=== PATIENT | female | born 1955 | race Caucasian/White ===

== ENCOUNTER → 2017-08-08 | Outpatient (CLI) | payer MEDICARE, OTHER ==
[~2017-08-08] MED LIST: ACET325 PO; ALBU90OI INH; ASPI81EC PO; ATOR40TA PO; AZIT250 PO; Augmentin 875-1 EACH PO; CEPH500 PO; DULOXETINE HCL40 MG PO; GABA300 PO; GABA800 PO; GLIP5ER PO; HEART BURN MED; HYDCHL25 PO; Hydrochloroth12.5 MG PO; LISI20 PO; LISI5 PO; LOVA40 PO; METF500 PO; METF850 PO; METR500 PO; Metformin HCl1000 MG PO; OMEPRAZOLE MAGN20 MG PO; OXYB5; OXYC15ER PO; PREG100 PO; Prinivil10 MG PO; SACC250C PO; VITAMIN D PO; Ventolin Soln3 ML INH; WARF5 PO
[2017-08-08 15:18] LABS: Bun/Creatinine Ratio 16.9 (12.0-20.0); Calcium, Blood 8.6 mg/dL (8.5-10.1); Creatinine, Blood 1.3 mg/dL (0.40-1.00); Potassium, Blood 4.3 mmol/L (3.5-5.5)
== END | disposition home or self-care (01) ==
LOC: LAB 14:28
PROVIDERS: Internal Medicine Hematology & Oncology
DX: C54.1 Malignant neoplasm of endometrium (principal); C78.01 Secondary malignant neoplasm of right lung; C78.02 Secondary malignant neoplasm of left lung; D64.9 Anemia, unspecified; R51 Headache
CPT/HCPCS: 80048

== ENCOUNTER 2017-09-24 06:41 | Inpatient (IN) | payer MEDICARE ==
[~2017-09-24] VITALS: Ht 167.6 cm; Wt 101.9 kg
[~2017-09-24 06:41] MED LIST changes: -ACET325 PO; -ATOR40TA PO; -Augmentin 875-1 EACH PO; -DULOXETINE HCL40 MG PO; -Metformin HCl1000 MG PO; -PREG100 PO; -Prinivil10 MG PO
[2017-09-24 08:20] LABS: BASOPHILS ABSOLUTE AUTO 0.03 K/mm3 (0.00-0.23); BASOPHILS PERCENT AUTO 0 % (0-2); EOSINOPHILS PERCENT AUTO 1 % (0-6); Hematocrit 28.8 % (33.0-51.0); Hemoglobin 9.1 g/dL (11.5-16.0); IMMATURE GRAN ABSOLUTE AUTO 0.04 K/mm3 (0.00-0.10); IMMATURE GRAN PERCENT AUTO 0 % (0-1); LYMPHOCYTES ABSOLUTE AUTO 0.71 K/mm3 (0.84-5.20); LYMPHOCYTES PERCENT AUTO 8 % (21-46); MONOCYTES ABSOLUTE AUTO 0.96 K/mm3 (0.16-1.47); MONOCYTES PERCENT AUTO 11 % (4-13); Mean Corpuscular HGB 33.8 pg (26.0-34.0); Mean Corpuscular HGB Conc 31.6 g/dL (31.5-36.5); Mean Corpuscular Volume 107 fL (80-100); Mean Platelet Volume 10.1 fL (9.1-12.4); NEUTROPHILS ABSOLUTE AUTO 7.19 K/mm3 (1.96-9.15); NEUTROPHILS PERCENT AUTO 80 % (41-73); Platelet Count 239 K/mm3 (150-400); RDW Coefficient Variation 15.2 % (11.7-14.2); RDW Standard Deviation 59.6 fL (35.1-46.3); Red Blood Cell Count 2.69 M/mm3 (3.80-5.20); White Blood Cell Count 9.03 K/mm3 (4.00-11.30)
[2017-09-24 08:27] LABS: Source, Urine Clean Catch
[2017-09-24] MEDS ORDERED: ATOR40TA PO (08:29)
[2017-09-24] MEDS ORDERED: Metformin HCl1000 MG PO (08:29)
[2017-09-24] MEDS ORDERED: PREG100 PO (08:30)
[2017-09-24] MEDS ORDERED: Prinivil10 MG PO (08:30)
[2017-09-24] MEDS ORDERED: DULOXETINE HCL40 MG PO (08:31)
[2017-09-24 08:33] LABS: Alanine Aminotransfer (ALT/SGP 21 U/L (12-78); Albumin, Blood 2.5 g/dL (3.4-5.0); Albumin/Globulin Ratio 0.6 (0.8-1.8); Alk Phos 78 U/L (50-136); Anion Gap 9 mmol/L (6-16); Aspartate Aminotrans (AST/SGOT 20 U/L (12-37); Bilirubin, Total 0.3 mg/dL (0.1-1.0); Blood Urea Nitrogen 19 mg/dL (8-24); Bun/Creatinine Ratio 21.9 (12.0-20.0); CO2, Blood 24 mmol/L (21-32); Calcium, Blood 8.2 mg/dL (8.5-10.1); Chloride, Blood 103 mmol/L (98-108); Creatinine, Blood 0.87 mg/dL (0.40-1.00); Globulin, Blood 4.2 g/dL (2.2-4.0); Glomerular Filtration Rate >60 (60-); Glucose, Blood 116 mg/dL (70-99); Potassium, Blood 4.2 mmol/L (3.5-5.5); Sodium, Blood 136 mmol/L (136-145); Total Protein, Blood 6.7 g/dL (6.4-8.2)
[2017-09-24 08:34] LABS: Bilirubin, Urine Neg (Neg); Blood, Urine 1+ (Neg); Glucose Qualitative, Urine Neg (Neg); Ketones, Urine Neg (Neg); Leukocyte Esterase, Urine 2+ (Neg); Nitrite, Urine Neg (Neg); Protein, Urine 2+ (Neg); Urobilinogen, Urine 2+ (Normal)
[2017-09-24 08:45] LABS: Appearance, Urine Cloudy (Clear); Color, Urine Yellow (P-Yellow)
[2017-09-24 08:46] LABS: Hyaline Casts 0-2 /lpf (0-2)
[2017-09-24 08:47] LABS: Bacteria Few /hpf; Red Blood Cells, Urine 0-2 /hpf (0-2); Squamous Epithelial Cells Few /hpf (Few)
[2017-09-24 09:53] LABS: International Normalized Ratio 0.99; Prothrombin Time Results 10.3 Sec (9.7-11.5)
[2017-09-25 04:50] LABS: BASOPHILS ABSOLUTE AUTO 0.03 K/mm3 (0.00-0.23); BASOPHILS PERCENT AUTO 1 % (0-2); EOSINOPHILS ABSOLUTE AUTO 0.11 K/mm3 (0.00-0.68); EOSINOPHILS PERCENT AUTO 3 % (0-6); Hematocrit 24.6 % (33.0-51.0); Hemoglobin 7.9 g/dL (11.5-16.0); IMMATURE GRAN ABSOLUTE AUTO 0.01 K/mm3 (0.00-0.10); IMMATURE GRAN PERCENT AUTO 0 % (0-1); LYMPHOCYTES ABSOLUTE AUTO 0.69 K/mm3 (0.84-5.20); LYMPHOCYTES PERCENT AUTO 18 % (21-46); MONOCYTES ABSOLUTE AUTO 0.45 K/mm3 (0.16-1.47); MONOCYTES PERCENT AUTO 12 % (4-13); Mean Corpuscular HGB 33.6 pg (26.0-34.0); Mean Corpuscular HGB Conc 32.1 g/dL (31.5-36.5); Mean Corpuscular Volume 105 fL (80-100); Mean Platelet Volume 9.7 fL (9.1-12.4); NEUTROPHILS ABSOLUTE AUTO 2.62 K/mm3 (1.96-9.15); NEUTROPHILS PERCENT AUTO 67 % (41-73); Platelet Count 189 K/mm3 (150-400); RDW Coefficient Variation 15.2 % (11.7-14.2); RDW Standard Deviation 58.1 fL (35.1-46.3); Red Blood Cell Count 2.35 M/mm3 (3.80-5.20); White Blood Cell Count 3.91 K/mm3 (4.00-11.30)
[2017-09-25 05:11] LABS: Anion Gap 7 mmol/L (6-16); Blood Urea Nitrogen 23 mg/dL (8-24); Bun/Creatinine Ratio 23.5 (12.0-20.0); CO2, Blood 27 mmol/L (21-32); Calcium, Blood 8.4 mg/dL (8.5-10.1); Chloride, Blood 107 mmol/L (98-108); Creatinine, Blood 0.98 mg/dL (0.40-1.00); Glomerular Filtration Rate >60 (60-); Glucose, Blood 98 mg/dL (70-99); Potassium, Blood 4.3 mmol/L (3.5-5.5); Sodium, Blood 141 mmol/L (136-145)
[2017-09-25] MEDS ORDERED: ACET325 PO (12:19)
[2017-09-25] MEDS ORDERED: Augmentin 875-1 EACH PO (12:20)
== END 2017-09-25 13:26 | disposition home or self-care (01) | DRG 193 ==
LOC: ER 06:41 → MEDS 11:04 → ENPENDDIS 09-25 10:51 → MEDS 09-25 13:26
PROVIDERS: Emergency Medicine; Internal Medicine
DX: J15.4 Pneumonia due to other streptococci (principal); J96.01 Acute respiratory failure with hypoxia; J44.0 Chronic obstructive pulmonary disease with (acute) lower respiratory infection; C78.00 Secondary malignant neoplasm of unspecified lung; E11.9 Type 2 diabetes mellitus without complications; Z79.4 Long term (current) use of insulin; I10 Essential (primary) hypertension; E78.5 Hyperlipidemia, unspecified; E66.9 Obesity, unspecified; G47.33 Obstructive sleep apnea (adult) (pediatric); Z86.718 Personal history of other venous thrombosis and embolism; F17.210 Nicotine dependence, cigarettes, uncomplicated; Y95 Nosocomial condition; C54.1 Malignant neoplasm of endometrium
CPT/HCPCS: 36415; 71046; 80048; 80053; 81001; 82947; 83605; 83690; 85025; 85610; 87040; 87070; 87077; 87086; 87186; 87205; 94640; 94760; 96365; 96375; 99285; J0456; J0692; J0696; J1650; J1885; J1956; J3010; J3370; J7030; J7050; J7120

== ENCOUNTER 2017-10-10 15:51 | Day surgery (SDC) | payer MEDICARE, OTHER ==
[~2017-10-10 15:51] MED LIST changes: +ACET325 PO; +ATOR40TA PO; +Augmentin 875-1 EACH PO; +DULOXETINE HCL40 MG PO; +Metformin HCl1000 MG PO; +PREG100 PO; +Prinivil10 MG PO
== END 2017-10-10 22:42 | disposition home or self-care (01) ==
LOC: RAD 15:51
DX: C54.1 Malignant neoplasm of endometrium (principal)
CPT/HCPCS: 36598; Q9967

== ENCOUNTER 2017-10-19 07:20 | Day surgery (SDC) | payer MEDICARE, OTHER ==
[~2017-10-19] VITALS: Ht 167.6 cm; Wt 100.7 kg
== END 2017-10-19 11:40 | disposition home or self-care (01) ==
LOC: ORSCMMR 07:20 → ORD 09:15 → ORSCMMR 09:15
PROVIDERS: Surgery
PROC: 02HV33Z Insertion of Infusion Device into Superior Vena Cava, Percutaneous Approach (ICD-10-PCS; principal; 2017-10-19 09:15)
PROC: B5181ZA Fluoroscopy of Superior Vena Cava using Low Osmolar Contrast, Guidance (ICD-10-PCS; principal; 2017-10-19 09:15)
DX: T82.524A Displacement of infusion catheter, initial encounter (principal); C54.1 Malignant neoplasm of endometrium; C78.02 Secondary malignant neoplasm of left lung; C78.01 Secondary malignant neoplasm of right lung; I10 Essential (primary) hypertension; E11.40 Type 2 diabetes mellitus with diabetic neuropathy, unspecified; E03.9 Hypothyroidism, unspecified; G47.33 Obstructive sleep apnea (adult) (pediatric); K21.9 Gastro-esophageal reflux disease without esophagitis; E66.01 Morbid (severe) obesity due to excess calories; Z68.35 Body mass index [BMI] 35.0-35.9, adult; Z79.899 Other long term (current) drug therapy; F17.210 Nicotine dependence, cigarettes, uncomplicated
CPT/HCPCS: 77001; 82947; C1788; J0690; J1100; J1642; J2250; J2405; J3010; J7120

== ENCOUNTER 2018-05-14 13:46 | Emergency (ER) | payer MEDICARE, OTHER ==
[~2018-05-14] VITALS: Ht 167.6 cm; Wt 104.8 kg
[2018-05-14 14:40] LABS: Alanine Aminotransfer (ALT/SGP 21 U/L (12-78); Albumin, Blood 3.1 g/dL (3.4-5.0); Albumin/Globulin Ratio 0.7 (0.8-1.8); Alk Phos 94 U/L (50-136); Anion Gap 7 mmol/L (6-16); Aspartate Aminotrans (AST/SGOT 12 U/L (12-37); Bilirubin, Total 0.2 mg/dL (0.1-1.0); Blood Urea Nitrogen 18 mg/dL (8-24); Bun/Creatinine Ratio 20.5 (12.0-20.0); CO2, Blood 30 mmol/L (21-32); Calcium, Blood 8.8 mg/dL (8.5-10.1); Chloride, Blood 102 mmol/L (98-108); Creatinine, Blood 0.88 mg/dL (0.40-1.00); Globulin, Blood 4.4 g/dL (2.2-4.0); Glomerular Filtration Rate >60 (60-); Glucose, Blood 108 mg/dL (70-99); Potassium, Blood 4.5 mmol/L (3.5-5.5); Sodium, Blood 139 mmol/L (136-145); Total Protein, Blood 7.5 g/dL (6.4-8.2); Troponin I <0.015 ng/mL (0.000-0.040)
[2018-05-14 14:50] LABS: BASOPHILS ABSOLUTE AUTO 0.03 K/mm3 (0.00-0.23); BASOPHILS PERCENT AUTO 1 % (0-2); EOSINOPHILS ABSOLUTE AUTO 0.07 K/mm3 (0.00-0.68); EOSINOPHILS PERCENT AUTO 1 % (0-6); Hematocrit 31.8 % (33.0-51.0); Hemoglobin 9.9 g/dL (11.5-16.0); IMMATURE GRAN ABSOLUTE AUTO 0.02 K/mm3 (0.00-0.10); IMMATURE GRAN PERCENT AUTO 0 % (0-1); LYMPHOCYTES PERCENT AUTO 15 % (21-46); MONOCYTES ABSOLUTE AUTO 0.29 K/mm3 (0.16-1.47); MONOCYTES PERCENT AUTO 6 % (4-13); Mean Corpuscular HGB 29.7 pg (26.0-34.0); Mean Corpuscular HGB Conc 31.1 g/dL (31.5-36.5); Mean Corpuscular Volume 96 fL (80-100); NEUTROPHILS PERCENT AUTO 77 % (41-73); RDW Coefficient Variation 16.5 % (11.7-14.2); RDW Standard Deviation 56.9 fL (35.1-46.3); Red Blood Cell Count 3.33 M/mm3 (3.80-5.20); White Blood Cell Count 5.21 K/mm3 (4.00-11.30)
[2018-05-14 14:54] LABS: Mean Platelet Volume 11.1 fL (9.1-12.4); Platelet Count 241 K/mm3 (150-400)
[2018-05-14] MEDS ORDERED: Diflucan100 MG PO (15:20)
== END 2018-05-14 15:45 | disposition home or self-care (01) ==
LOC: ER 13:46
PROVIDERS: Physician Assistant
DX: B37.0 Candidal stomatitis (principal); C34.90 Malignant neoplasm of unspecified part of unspecified bronchus or lung; J06.9 Acute upper respiratory infection, unspecified; R07.9 Chest pain, unspecified; Z91.018 Allergy to other foods; Z79.899 Other long term (current) drug therapy; Z79.84 Long term (current) use of oral hypoglycemic drugs; Z79.891 Long term (current) use of opiate analgesic; I10 Essential (primary) hypertension; E78.00 Pure hypercholesterolemia, unspecified; E11.9 Type 2 diabetes mellitus without complications; K21.9 Gastro-esophageal reflux disease without esophagitis; F17.200 Nicotine dependence, unspecified, uncomplicated
CPT/HCPCS: 36415; 71046; 80053; 83880; 84484; 85025; 93005; 93010; 99284-25

== ENCOUNTER 2018-08-15 18:12 | Emergency (ER) | payer MEDICARE, OTHER ==
[~2018-08-15] VITALS: Ht 167.6 cm; Wt 102.1 kg
[~2018-08-15 18:12] MED LIST changes: +Diflucan100 MG PO
[2018-08-15 18:41] LABS: Source, Urine Clean Catch
[2018-08-15 18:51] LABS: Appearance, Urine Bloody (Clear); Bilirubin, Urine Neg (Neg); Blood, Urine 5+ (Neg); Color, Urine Red (P-Yellow); Glucose Qualitative, Urine Neg (Neg); Ketones, Urine Neg (Neg); Leukocyte Esterase, Urine 2+ (Neg); Nitrite, Urine Neg (Neg); Protein, Urine 3+ (Neg); Specific Gravity, Urine 1.025 (1.003-1.022); Urobilinogen, Urine 1+ (Normal)
[2018-08-15 19:16] LABS: Red Blood Cells, Urine TNTC /hpf (0-2)
[2018-08-15 19:17] LABS: Bacteria Not Seen /hpf; Squamous Epithelial Cells Rare /hpf (Few)
[2018-08-15 19:53] LABS: BASOPHILS ABSOLUTE AUTO 0.04 K/mm3 (0.00-0.23); BASOPHILS PERCENT AUTO 1 % (0-2); EOSINOPHILS ABSOLUTE AUTO 0.08 K/mm3 (0.00-0.68); EOSINOPHILS PERCENT AUTO 2 % (0-6); Hematocrit 31.8 % (33.0-51.0); Hemoglobin 9.8 g/dL (11.5-16.0); IMMATURE GRAN ABSOLUTE AUTO 0.04 K/mm3 (0.00-0.10); IMMATURE GRAN PERCENT AUTO 1 % (0-1); LYMPHOCYTES ABSOLUTE AUTO 1.18 K/mm3 (0.84-5.20); LYMPHOCYTES PERCENT AUTO 22 % (21-46); MONOCYTES ABSOLUTE AUTO 0.46 K/mm3 (0.16-1.47); MONOCYTES PERCENT AUTO 9 % (4-13); Mean Corpuscular HGB 30.1 pg (26.0-34.0); Mean Corpuscular HGB Conc 30.8 g/dL (31.5-36.5); Mean Corpuscular Volume 98 fL (80-100); Mean Platelet Volume 10.5 fL (9.1-12.4); NEUTROPHILS ABSOLUTE AUTO 3.62 K/mm3 (1.96-9.15); NEUTROPHILS PERCENT AUTO 67 % (41-73); Platelet Count 294 K/mm3 (150-400); RDW Coefficient Variation 19.3 % (11.7-14.2); Red Blood Cell Count 3.26 M/mm3 (3.80-5.20); White Blood Cell Count 5.42 K/mm3 (4.00-11.30)
[2018-08-15 20:12] LABS: Alanine Aminotransfer (ALT/SGP 19 U/L (12-78); Albumin, Blood 3.1 g/dL (3.4-5.0); Albumin/Globulin Ratio 0.8 (0.8-1.8); Alk Phos 80 U/L (50-136); Anion Gap 4 mmol/L (6-16); Aspartate Aminotrans (AST/SGOT 17 U/L (12-37); Bilirubin, Total 0.2 mg/dL (0.1-1.0); Blood Urea Nitrogen 14 mg/dL (8-24); Bun/Creatinine Ratio 15.4 (12.0-20.0); CO2, Blood 31 mmol/L (21-32); Calcium, Blood 8.4 mg/dL (8.5-10.1); Chloride, Blood 104 mmol/L (98-108); Creatinine, Blood 0.91 mg/dL (0.40-1.00); Globulin, Blood 4.1 g/dL (2.2-4.0); Glomerular Filtration Rate >60 (60-); Glucose, Blood 78 mg/dL (70-99); Potassium, Blood 4.2 mmol/L (3.5-5.5); Sodium, Blood 139 mmol/L (136-145); Total Protein, Blood 7.2 g/dL (6.4-8.2)
== END 2018-08-15 22:45 | disposition home or self-care (01) ==
LOC: ER 18:12
PROVIDERS: Emergency Medicine; Physician Assistant
DX: C55 Malignant neoplasm of uterus, part unspecified (principal); C78.00 Secondary malignant neoplasm of unspecified lung; E11.40 Type 2 diabetes mellitus with diabetic neuropathy, unspecified; E78.00 Pure hypercholesterolemia, unspecified; I10 Essential (primary) hypertension; F17.210 Nicotine dependence, cigarettes, uncomplicated; Z79.84 Long term (current) use of oral hypoglycemic drugs; Z79.899 Other long term (current) drug therapy
CPT/HCPCS: 36415; 80053; 81001; 85025; 86850; 86900; 86901; 87086; 99284

== ENCOUNTER 2018-09-27 07:30 | Day surgery (SDC) | payer MEDICARE, OTHER | END 2018-09-27 22:44 | disposition home or self-care (01) | LOC: WOUND 07:30 | DX: E11.622 Type 2 diabetes mellitus with other skin ulcer (principal); L97.811 Non-pressure chronic ulcer of other part of right lower leg limited to breakdown of skin; E11.51 Type 2 diabetes mellitus with diabetic peripheral angiopathy without gangrene; C54.1 Malignant neoplasm of endometrium; C78.02 Secondary malignant neoplasm of left lung; C78.01 Secondary malignant neoplasm of right lung; I10 Essential (primary) hypertension; I87.2 Venous insufficiency (chronic) (peripheral); G47.33 Obstructive sleep apnea (adult) (pediatric); Z86.718 Personal history of other venous thrombosis and embolism | CPT/HCPCS: G0463 ==

== ENCOUNTER 2018-10-05 00:36 | Day surgery (SDC) | payer MEDICARE, OTHER | END 2018-10-05 22:54 | disposition home or self-care (01) | LOC: WOUND 00:36 | DX: E11.622 Type 2 diabetes mellitus with other skin ulcer (principal); L97.811 Non-pressure chronic ulcer of other part of right lower leg limited to breakdown of skin; I87.2 Venous insufficiency (chronic) (peripheral); I10 Essential (primary) hypertension; I82.509 Chronic embolism and thrombosis of unspecified deep veins of unspecified lower extremity; E11.51 Type 2 diabetes mellitus with diabetic peripheral angiopathy without gangrene; G47.33 Obstructive sleep apnea (adult) (pediatric); C54.1 Malignant neoplasm of endometrium; C78.02 Secondary malignant neoplasm of left lung; C78.01 Secondary malignant neoplasm of right lung; I89.0 Lymphedema, not elsewhere classified; G47.30 Sleep apnea, unspecified; E11.40 Type 2 diabetes mellitus with diabetic neuropathy, unspecified | CPT/HCPCS: G0463 ==

== ENCOUNTER 2019-01-13 20:15 | Emergency (ER) | payer MEDICARE, OTHER ==
[~2019-01-13] VITALS: Ht 165.1 cm; Wt 89.8 kg
[2019-01-13] MEDS ORDERED: ATORVASTATIN CA40 MG PO (20:24)
[2019-01-13] MEDS ORDERED: MORP30ER PO (20:24)
[2019-01-13 22:21] LABS: BASOPHILS ABSOLUTE AUTO 0.03 K/mm3 (0.00-0.23); BASOPHILS PERCENT AUTO 0 % (0-2); EOSINOPHILS ABSOLUTE AUTO 0.09 K/mm3 (0.00-0.68); EOSINOPHILS PERCENT AUTO 1 % (0-6); Hematocrit 40.7 % (33.0-51.0); Hemoglobin 13.3 g/dL (11.5-16.0); IMMATURE GRAN ABSOLUTE AUTO 0.02 K/mm3 (0.00-0.10); IMMATURE GRAN PERCENT AUTO 0 % (0-1); LYMPHOCYTES ABSOLUTE AUTO 1.09 K/mm3 (0.84-5.20); LYMPHOCYTES PERCENT AUTO 12 % (21-46); MONOCYTES ABSOLUTE AUTO 0.56 K/mm3 (0.16-1.47); MONOCYTES PERCENT AUTO 6 % (4-13); Mean Corpuscular HGB 28.7 pg (26.0-34.0); Mean Corpuscular HGB Conc 32.7 g/dL (31.5-36.5); Mean Corpuscular Volume 88 fL (80-100); Mean Platelet Volume 10.2 fL (9.1-12.4); NEUTROPHILS ABSOLUTE AUTO 7.64 K/mm3 (1.96-9.15); NEUTROPHILS PERCENT AUTO 81 % (41-73); Platelet Count 295 K/mm3 (150-400); RDW Coefficient Variation 15.8 % (11.7-14.2); RDW Standard Deviation 50.7 fL (35.1-46.3); Red Blood Cell Count 4.64 M/mm3 (3.80-5.20); White Blood Cell Count 9.43 K/mm3 (4.00-11.30)
[2019-01-13 22:40] LABS: Anion Gap 9 mmol/L (6-16); Blood Urea Nitrogen 15 mg/dL (8-24); Bun/Creatinine Ratio 20.1 (12.0-20.0); CO2, Blood 29 mmol/L (21-32); Calcium, Blood 9.1 mg/dL (8.5-10.1); Chloride, Blood 102 mmol/L (98-108); Creatinine, Blood 0.75 mg/dL (0.40-1.00); Glomerular Filtration Rate >60 (60-); Glucose, Blood 137 mg/dL (70-99); Potassium, Blood 4.3 mmol/L (3.5-5.5); Sodium, Blood 140 mmol/L (136-145)
== END 2019-01-13 23:55 | disposition home or self-care (01) ==
LOC: ER 20:15
PROVIDERS: Physician Assistant
DX: R59.0 Localized enlarged lymph nodes (principal); E78.00 Pure hypercholesterolemia, unspecified; E11.40 Type 2 diabetes mellitus with diabetic neuropathy, unspecified; I10 Essential (primary) hypertension; F17.210 Nicotine dependence, cigarettes, uncomplicated; Z85.42 Personal history of malignant neoplasm of other parts of uterus; Z90.710 Acquired absence of both cervix and uterus; Z91.018 Allergy to other foods; Z79.84 Long term (current) use of oral hypoglycemic drugs; Z79.899 Other long term (current) drug therapy
CPT/HCPCS: 36415; 74176; 80048; 85025; 96372-59; 96374; 99284-25; J1170

== ENCOUNTER 2019-02-21 00:04 | Emergency (ER) | payer MEDICARE, OTHER ==
[~2019-02-21] VITALS: Ht 167.6 cm; Wt 88.0 kg
[~2019-02-21 00:04] MED LIST changes: +ATORVASTATIN CA40 MG PO; +MORP30ER PO
[2019-02-21 02:24] LABS: BASOPHILS ABSOLUTE AUTO 0.07 K/mm3 (0.00-0.23); BASOPHILS PERCENT AUTO 1 % (0-2); EOSINOPHILS ABSOLUTE AUTO 0.24 K/mm3 (0.00-0.68); EOSINOPHILS PERCENT AUTO 2 % (0-6); Hemoglobin 13.1 g/dL (11.5-16.0); IMMATURE GRAN ABSOLUTE AUTO 0.05 K/mm3 (0.00-0.10); IMMATURE GRAN PERCENT AUTO 0 % (0-1); LYMPHOCYTES ABSOLUTE AUTO 1.32 K/mm3 (0.84-5.20); LYMPHOCYTES PERCENT AUTO 10 % (21-46); MONOCYTES ABSOLUTE AUTO 0.75 K/mm3 (0.16-1.47); MONOCYTES PERCENT AUTO 5 % (4-13); Mean Corpuscular Volume 91 fL (80-100); Mean Platelet Volume 10.2 fL (9.1-12.4); NEUTROPHILS ABSOLUTE AUTO 11.51 K/mm3 (1.96-9.15); NEUTROPHILS PERCENT AUTO 83 % (41-73); Platelet Count 412 K/mm3 (150-400); RDW Coefficient Variation 16.3 % (11.7-14.2); RDW Standard Deviation 54.7 fL (35.1-46.3); Red Blood Cell Count 4.51 M/mm3 (3.80-5.20); White Blood Cell Count 13.94 K/mm3 (4.00-11.30)
[2019-02-21 02:34] LABS: Alanine Aminotransfer (ALT/SGP 17 U/L (12-78); Albumin, Blood 3.1 g/dL (3.4-5.0); Albumin/Globulin Ratio 0.6 (0.8-1.8); Alk Phos 126 U/L (50-136); Anion Gap 9 mmol/L (6-16); Aspartate Aminotrans (AST/SGOT 22 U/L (12-37); Bilirubin, Total 0.4 mg/dL (0.1-1.0); Blood Urea Nitrogen 15 mg/dL (8-24); Bun/Creatinine Ratio 17.3 (12.0-20.0); CO2, Blood 29 mmol/L (21-32); Calcium, Blood 9.2 mg/dL (8.5-10.1); Chloride, Blood 99 mmol/L (98-108); Creatinine, Blood 0.87 mg/dL (0.40-1.00); Glomerular Filtration Rate >60 (60-); Glucose, Blood 129 mg/dL (70-99); Potassium, Blood 4.2 mmol/L (3.5-5.5); Sodium, Blood 137 mmol/L (136-145); Total Protein, Blood 8.1 g/dL (6.4-8.2)
== END 2019-02-21 04:30 | disposition home or self-care (01) ==
LOC: ER 00:04
PROVIDERS: Emergency Medicine
DX: R10.84 Generalized abdominal pain (principal); C34.90 Malignant neoplasm of unspecified part of unspecified bronchus or lung; I10 Essential (primary) hypertension; E11.40 Type 2 diabetes mellitus with diabetic neuropathy, unspecified; Z85.42 Personal history of malignant neoplasm of other parts of uterus; F17.210 Nicotine dependence, cigarettes, uncomplicated; Z91.018 Allergy to other foods; Z79.899 Other long term (current) drug therapy; Z79.84 Long term (current) use of oral hypoglycemic drugs; Z79.891 Long term (current) use of opiate analgesic
CPT/HCPCS: 36415; 74176; 80053; 83690; 85025; 96361; 96374; 96375; 99284-25; J1170; J2405; J7030

== ENCOUNTER 2019-05-17 13:25 | Inpatient (IN) | payer OTHER, MEDICARE ==
[~2019-05-17] VITALS: Ht 165.1 cm; Wt 78.8 kg
[~2019-05-17 13:25] MED LIST changes: +MORP20L PO; -MORP30ER PO; -Metformin HCl1000 MG PO; -Prinivil10 MG PO; +ROXYBOND30 MG PO
[2019-05-17] MEDS ORDERED: Aspir 8181 MG PO (16:14)
[2019-05-17] MEDS ORDERED: DEXA4 PO (16:14)
[2019-05-17] MEDS ORDERED: Enema133 M1 PR (16:15)
[2019-05-17] MEDS ORDERED: BISA10S PR (16:15)
[2019-05-17] MEDS ORDERED: OSCIMIN SL0.125 MG SL (16:16)
[2019-05-17] MEDS ORDERED: Ativan0.5 MG PO (16:18)
[2019-05-17] MEDS ORDERED: ZOFRAN8 MG PO (16:19)
[2019-05-17] MEDS ORDERED: Milk Of Ma400 MG/5 M PO (16:19)
[2019-05-17] MEDS ORDERED: Senna S Tablet1 EACH PO (16:20)
--- NOTE | 2019-05-17 18:45 | NUR ---
SUMMARY PT ADMITTED FROM THE ER FOR INTRACTIBLE PAIN RELATED TO END STAGE CANCER, PT ON HOSPICE WITH [facility], FAMILY IS AT THE BEDSIDE, PT ARRIVED VIA GURNEY VERY AGITATED, THRASHING AROUND IN THE BED AND CRYING OUT AND MUMBLING IN PAIN, PT MED WITH ROXANOL AND ATIVAN PER EMAR, HEATING PAD ALSO USED, PT STARTING TO SETTLE DOWN, MEDIPORT TO THE L CHEST WALL WAS ACCESSED IN THE ED, NS IS INFUSING JUST TKO, WILL CONT TO MONITOR
--- NOTE | 2019-05-17 20:27 | NUR ---
PAIN: PATIENT IS INC. OF URINE. PATIENT IS AGGITATED AND SCORE A 7 ON FLACC SCAL. ORAL ROXANOL 20 MG IS GIVEN. BP WAS ELEVATED BUT PATIENT WAS TENSING ARM DURING BP ASSESSMENT.
--- NOTE | 2019-05-17 21:24 | NUR ---
PAIN/ ANXIETY: PATIENT HAD POOR EFFECT FROM ROXANOL, FAMILY IS AT BEDSIDE AND REQUEST MEDICATION FOR ANXIETY. PATIENT IS UNCONSOLABLE AND TRYING TO GET OOB. IV ATIVAN 2MG IS GIVEN.
--- NOTE | 2019-05-18 00:01 | NUR ---
AGGITATION AND PAIN: PATIENT HAD POOR EFFECT FROM ATIVAN AND CONTINUES TO SCORE 7 ON FLACC SCALE. ROXANOL IS REPEATED AND CALL IS PLACED TO JAKE YAP NP. REQUEST FOR RIVERA CATHETER PLACEMENT FOR COMFORT. FAMILY ALSO REPORTS NO BM IN 4 DAYS. ORDER FOR RIVERA AND FLEETS ENEMA IS OBTAINED. RIVERA WAS PLACED AND FAMILY REQUESTED TO WAIT ON ENEMA DUE TO AGGITATION AND PAIN. PATIENT TOLERATED TO RIVERA PLACEMENT POORLY. ATIVAN 2MG IS REPEATED. PATIENT AT THIS TIME HAS GOOD EFFECT FROM ATIVAN AND IS SLEEPING, RESPIRATIONS ARE 15. FAMILY IS AT THE BEDSIDE.
[2019-05-18 00:29] LABS: Bilirubin, Urine Neg (Neg); Blood, Urine 1+ (Neg); Glucose Qualitative, Urine Neg (Neg); Ketones, Urine Neg (Neg); Leukocyte Esterase, Urine Neg (Neg); Nitrite, Urine Neg (Neg); Protein, Urine 1+ (Neg); Source, Urine Catheter; Urobilinogen, Urine NORM (Normal)
[2019-05-18 00:35] LABS: Appearance, Urine Clear (Clear); Color, Urine Yellow (P-Yellow)
[2019-05-18 00:40] LABS: Red Blood Cells, Urine 0-2 /hpf (0-2); White Blood Cells, Urine Not Seen /hpf (0-5)
[2019-05-18 00:41] LABS: Bacteria Not Seen /hpf; Squamous Epithelial Cells Rare /hpf (Few)
--- NOTE | 2019-05-18 02:51 | NUR ---
PAIN/AGGITATION: PATIENT IS RESTLESS, AGGITIATED AND SCORES A 7 ON THE FLACC SCALE. IV ATIVAN 2 MG AND ROXANOL 20 MG ARE GIVEN. FAMILY REMAINS AT BEDSIDE PROVIDING EMOTIONAL SUPPORT.
--- NOTE | 2019-05-18 03:37 | NUR ---
AGGITATION/ PAIN: PATIENT IS HAVING GOOD EFFECT FROM ATIVAN AND ROXANOL. PATIENT IS SLEEPING, SCORES A ZERO ON FLACC SCALE.
--- NOTE | 2019-05-18 05:54 | NUR ---
SHIFT SUMMARY: PATIENT HAS REQUIRED ROXANOL AND IV ATIVAN Q1-2 HOURS THROUGH THE SHIFT. AFTER RIVERA INCERTION PATIENT DID STOP TRYING TO GET OOB BUT STILL BECOMES RESTLESS, ANXIOUS AND AGGITATED. PATIENT HAS NOT BEEN ABLE TO SAFELY SWALLOW ANY PILLS THIS SHIFT. AND MOTHER HAVE REMAIN VIGILANT AT BEDSIDE AND ARE REQUESTING SPIRITUAL CARE TO COME AND PROVIDE CARE, NURSING CHIEF CARDIOPULMONARY TECHNOLOGIST IS NOTIFIED. FAMILY REQUESTED NO VS THIS AM DUE TO PATIENT HAVING DISCOMFORT ALREADY.
--- NOTE | 2019-05-18 09:02 | NUR ---
STARTED THE MORNING WITH THE PATIENT IN PAIN. SHE AHS BEEN GIVEN ONE DOSE OF 20MG OF ROXANOL WHICH DID NOT SEEM TO HELP WITH HER PAIN/AGITATION. SHE HAD BEEN GIVEN THE IV ATIVAN AT 0620 WHICH DID NOT SEEM TO HELP WITH THE AGITATION EITHER. SHE WAS GIVEN ONE DOSE OF ORAL ATIVAN AT 0800 AND THIS HAS HELPED CALM HER. I WILL TRY TO KEEP UP WITH THE ORAL ATIVAN AND ROXANOL NEEDED.
--- NOTE | 2019-05-18 09:13 | NUR ---
Initial Spiritual Care note: Called in to provide calm presence, education, residential substance abuse counselor, and prayer. Pt, Tamica, restless and moaning. Spouse, Dub, overwhelmed, tearful. Pt's mother, Lina, stoic, tired. Family has not slept or left hospital since admission yesterday. They are deeply disturbed by Tamica's restlessness. Provided end-of-life education, consulted Honey with Palliative care. Prayer for a painless, dignified transition provided at family request. My interventions appeared helpful. [facility]. Encouraged taking breaks, eating, rest for family. Affirmed obvious love and facilitated story telling. Tamica was not lucid and did not respond to voice/touch. I will remain available.
--- NOTE | 2019-05-18 14:53 | NUR ---
Patient sent in by [email or web address] for intractable pain and incresing symptoms. Pt minimally response. Respirtions slighly labored but deep and even. pupls large abdomen slightly distended. Neck muscles tight, arms contracted, feet twitching and pt has foot drop. no grimace with physical exam. some bonny of arms and pt pale and cool. Review of pt trajectory of care with . Per pt overextented herself at [place] and had some distress over not having a good interaction with her son. Pt has a long pain history with narcotic use pt still smoking until the . Review with family pt expressions of mental and emotional stress as she progresses towards the end of life. Review of tumor and bone pain. Notified physician. Suggest nicotine patch. May need to change meds to IV and po. Suggest Iv steroid. suggest treating for nausea and GI distress. Pt unable to express full symptoms. Repeat visits to support family and monitor symtoms. last visit muscles musch looser and pt less aggitated. pt high risk for seizure. multiple family member at bedside encouraged reminising and expressions of closure with patient. Pt sowing s/s of progression. Nurisng frequently reassessing for comfort or s/s of neurological chages. will continue to monitor.
--- NOTE | 2019-05-18 17:46 | NUR ---
SHIFT SUMMARY PATIENT IS UNRESPONSIVE UNLESS TO PAINFUL STIMULI, SHE IS CURRENTLY COMFORTABLE. SHE WAS PLACED ON COMFORT CARE THIS AFTERNOON. AFTER PLACEMENT OF THE FENTANYL PATCH AND THE NICOTINE PATCH SHE HAS CALMED DOWN A LOT. SHE HAS HAD ORAL ATIVAN BECAUSE IT IS WORKING FOR HER BETTER THAN THE IV ATIVAN. SHE WAS GIVEN ONE DOSE OF IV DECADRON FOR PAIN CONTROL AND HAS SINCE DONE WELL. WILL CONTINUE TO MONITOR FOR ANY CHANGES OR SIGNS OF WORSENING CONDITION. SHE HAS HAD FAMILY AT THE BEDSIDE SINCE ADMISSION.
--- NOTE | 2019-05-18 20:36 | NUR ---
PT APPEARS SLEEPING DURING SHIFT CHANGE. HOWEVER, PT BECAME AGITATED FAST AND KEPT MOVING AROUND BED. MEDICATED FOR PAIN BUT PT SPIT HALF OF IT UP. MEDICATED WITH PO ATIVAN WHICH DID NOT CALM PT DOWN. IV ATIVAN WAS THEN GIVEN. CATHETHER ADJUSTED AND CHECKED FOR KINKS. PT REPOSITIONED MULTIPLE TIMES. PT BEGAN TO RELAX A LITTLE AFTER IV ATIVAN GIVEN. WILL WAIT A FEW MIN AND SEE HOW PT ADJUSTS BEFORE GIVING ORAL PAIN MED. ALL FOUR RAILS UP PER PT'S FAMILY'S REQUEST.
--- NOTE | 2019-05-18 21:09 | NUR ---
PT STILL AGITATED AND MOANING. FAMILY AT BEDSIDE. DR. STARK NOTIFIED OF PT'S CONDITION. MORPHINE 5 MG Q2 ORDERED.
--- NOTE | 2019-05-19 00:14 | NUR ---
PT ASSESSED 20 MIN LATER AFTER MORPHINE IV GIVEN. PT STILL AGITATED, MOVING IN BED AND MOANING. FAMILY AT BEDSIDE VERY AGITATED WELL. I CONTACTED DR. STARK AND EXPLAINED THE SITUATION. 1-2 MG DILAUDID IV Q 1 HR PRN ORDERED. PT GIVEN 2MG IV DILAUDID. PT FINALLY FELL ASLEEP 5 MIN AFTER THIS WAS GIVEN. PT AND FAMILY MEMBERS MORE RELAXED. PT RE-ASSESSED 20 MIN AFTER AND WAS STILL SLEEPING. RAXANOL 20 MG PO GIVEN LATER TO KEEP UP WITH THE PAIN. PT RE-ADJUSTED IN BED TO TAKE PO MED, HOWEVER THIS WAS ALL SPIT BACK UP. MORPHINE SULFATE IV 5 MG GIVEN AFTER THIS. WILL CONTINUE TO MONITOR.
--- NOTE | 2019-05-19 00:25 | NUR ---
PT ASLEEP DURING THIS TIME. FAMILY BY BEDSIDE CHATTING. SNACKS AND REFRESHMENTS HAVE BEEN PROVIDED.
--- NOTE | 2019-05-19 07:16 | NUR ---
SPEEDER MACHINE OPERATOR SUMMARY PT HAS BEEN AGITATED AND IN PAIN OFF AND ON REGARDLESS OF KEEPING UP WITH THE PAIN MEDS WE HAVE GIVEN HER. FAMILY HAS BEEN IN THE ROOM ALL NIGHT. REFRESHMENTS AND COMFORT PROVIDED TO FAMILY. ROXANOL GIVEN TOWARDS THE END OF SHIFT. PT WAS STILL AGITATED, MOVING AROUND IN BED AND MOANING DURING RE-ASSESSMENT. DILUADID IV 2MG GIVEN. AM NURSE NOTIFIED OF PT'S CONDITION.
--- NOTE | 2019-05-19 07:40 | NUR ---
PATIENT FENTANYL PATCH CAME OFF. LET PHARMACY KNOW AND PLACED NEW PATCH.
--- NOTE | 2019-05-19 10:51 | NUR ---
pt aggitated and turning back and fourth in bed pulling at catheter. Review of symptoms with physician. pt pulling at groin. fentanyl patch replaced. suggest anestheiologist consult in unable to decrese pelvic pain.
--- NOTE | 2019-05-19 11:12 | NUR ---
PATIENT WAS GIVEN A BED BATH. HER LINENS WERE CHANGED. SHE HAD BEEN MEDICATED PRIOR TO THE BEDBATH. PATIENT NOW COMFORTABLE. GOWN CHANGED. PATIENT ALSO HAD A CHANGE IN HER FENTANYL PATCH.
--- NOTE | 2019-05-19 15:18 | NUR ---
FAMILY BACK IN WITH THE PATIENT. THERE HAS BEEN ONE TO TWO PEOPLE ALL DAY. THERE WAS A SMALL SURGE OF FAMILY AND PATIENT BECAME VERY RILED UP, UNCOMFORTABLE AND WRITHING. WE HAVE GIVEN THE 2MG DOSE OF ATIVAN, TWICE ORALLY. WILL CONTINUE TO MEDICATE THE PATIENT TO MAKE HER COMFORTABLE. SPOKE WITH THE FAMILY AND THEY HAVE AGREED THAT THE PHENERGAN SUPPOSITORY AWAITING THIS FROM PHARMACY.
--- NOTE | 2019-05-19 16:22 | NUR ---
PATIENT SITTING WITH TC LEWIS FROM PALLIATIVE CARE. SHE IS CURERNTLY CRAMPING IN HER ABDOMEN AND WORKING THROUGH THE PAIN WITH ROCKING BACK AND FORTH. FAMILY IS OUT OF THE ROOM AND TC IS SITTING WITH HER. SHE IS MOSTLY AWAKE AND ABLE TO ANSWER SOME QUESTIONS. SPOKE WITH DR. GARRISON ABOUT THE CURRENT CONCERNS AND SHE STATES TO STAY THE COURSE AND MAKE SURE THAT WE ARE NOT MISSING A DOSE SHE MAY NEED EVERY DOSE TO KEEP HER COMFORTABLE AND WE WILL REEVALUATE IN THE MORNING.
--- NOTE | 2019-05-19 20:11 | NUR ---
1929 PT AGITATED AND MOVING AROUND IN BED, AND FIGIDY. AT BEDSIDE CONSOLING AND HOLDING PT DOWN WHILE I GAVE PAIN MEDICATION. HARD TO CONSOL AT THIS TIME. 811 PT IS CURRENTLY ASLEEP AND RESTING.
--- NOTE | 2019-05-20 00:04 | NUR ---
PT CURRENTLY ASLEEP AND RESTING QUIETLY AFTER MAINTAINING PAIN MEDS
--- NOTE | 2019-05-20 15:48 | NUR ---
pt continues to have bouts of crying aout and terminal aggitation. pt physicl movments less pulling legs relaxed and periods of rest. family at bedside very stressful family dynamic. coaching family on positioning and reduction of stimulus.
--- NOTE | 2019-05-20 15:54 | NUR ---
HOSPICE [facility] CEMETERY WORKERS SUPERVISOR CAME BY TO CHECK ON THE PT AND TO CHECK IN WITH THE FAMILY
--- NOTE | 2019-05-20 17:35 | NUR ---
Routine spiritual Care note: Lucy appears to be sleeping soundly today. No signs of distress thanks to excellent nursing. Family/friends gathered at bedside. Facilitated story-telling and affirmed great love. Family appears more rested and less anxious. Offered prayer and continued support. Spouse expressed great appreciaition for Palliative Care RN support. I will remain available.
--- NOTE | 2019-05-20 18:14 | NUR ---
SUMMARY PT RESTING QUIETLY IN BED, FAMILY AT THE BEDSIDE, PT REMAINS ON COMFORT CARE, PT GOES BETWEEN SLEEP AND EXTREME AGITATION WITH ROCKING AND THRASHING AROUND IN THE BED WHILE MOANING, PT MED PER EMAR FREQUENTLY FOR PAIN AND ANXIETY, PALLIATIVE CARE HAS BEEN IN TO SEE THE PT AND FAMILY, SPIRITUAL CARE HAS ALSO BEEN IN TO SEE THE PT AND FAMILY, PT DOES OCC HAVE RATTLING BREATHING, WILL CONT TO MONITOR
--- NOTE | 2019-05-20 20:31 | NUR ---
PATIENT RESTING COMFORTABLY, DOES GET RESTLESS ONCE AND WHILE BUT STATES THIS IS THE BEST SHE HAS BEEN. FAMILY IN THE ROOM, AND IS HELPING WITH CARE. MEDICATED FOR PAIN FOR GRIMANCING. FAMILY STATES PAIN IS SEVERE AND HARD TO GET UNDER CONTROL. CALL LIGHT IN REACH.
--- NOTE | 2019-05-21 01:21 | NUR ---
PATIENT HAS AWOKE UP MOANING AND GROINING, RESTLESS, RAISING HER BACK, AND PICKING HER LEGS UP. FAMILY STATES THIS IS HOW SHE GETS AND THEN IT IS HARD TO CONTROL THE PAIN. GAVE HER PAIN MEDS, AND WILL CONTINUE TO ADMINISTER MEDS TO GET HER CALM AND COMFORTABLE. FAMILY AT SIDE.
--- NOTE | 2019-05-21 01:24 | NUR ---
IT HAS BEEN HARD TO GET VIRGINIA BACK UNDER CONTROL, SHE HAS BEEN GIVEN ALL THE PAIN MEDS AND ANTI-ANXIETY MEDS AND SHE WAS STILL RESTLESS, AND MOANING IN PAIN. WAS ADMINSTERING PAIN MEDS AROUND THE CLOCK EVERY HOUR AND THIS WAS NOT WORKING. THEREFORE, GAVE PHENERGAN TO SEE IF IT MIGHT HELP, AND IT IMMEDIATLY CALMED HER DOWN, SHE STARTED TO SNORE AFTER THAT. WILL REMAIN ON TOP OF HER PAIN.
--- NOTE | 2019-05-21 02:00 | NUR ---
VIRGINIA IS RESTING COMFORTABLY STILL, FAMILY AT BEDSIDE. WENT AHEAD AND MEDICATED FOR PAIN EARLIER, TO STAY ON TOP OF IT. CALL LIGHT IN REACH OF FAMILY. WILL CONTINUE TO MONITOR.
--- NOTE | 2019-05-21 04:39 | NUR ---
PATIENT RESTING COMFORTABLY RESP ARE EVEN AND UNLABORED, FAMILY ASLEEP AT BEDSIDE. MEDICATED FOR PAIN AND SOME GRIMACING THAT WAS OCCURRING. WILL CONTINUE TO MONITOR.
--- NOTE | 2019-05-21 05:33 | NUR ---
SHIFT SUMMARY: VIRGINIA HAD A ROUGH START TO THE NIGHT. SHE ENDED UP WAKING UP AND WAS MOANING, RESTLESS, ARCHING HER BACK IN PAIN. SHE WAS GIVEN DILADID, ROXINAL, ATIVAN MAX AMOUNT AROUND THE CLOCK UNTIL ABOUT MIDNIGHT WHEN I GAVE PHENERGAN WHICH FINALLY SETTLED HER DOWN AND SHE BEGAN TO REST. PAIN MEDICATION HAS BEEN GIVEN REGULARLY SINCE THEN TO HELP KEEP HER PAIN UNDER CONTROL AND RESTED. SHE HAS BEEN SLEEPING THROUGHOUT THE NIGHT, RESP HAVE BEEN EVEN AND UNLABORED. FAMILY HAS BEEN ABLE TO SLEEP AT THE BEDSIDE. CALL LIGHT IN HUSBANDS LAP. CATHETER REMAINED PATENT AND DRAINING. DID HAVE TO CHANGE LINEN ONCE DUE TO WETNESS UNDERNEATH HER, NOT SURE IF THE CATHETER LEAKED OR NOT. FAMILY DID NOT WANT HER REPOSITIONED WHEN SHE WAS COMFORTABLE HER PAIN IS TO SEVERE TO CONTROL. NO OTHER CHANGES TO REPORT.
--- NOTE | 2019-05-21 10:01 | NUR ---
Pal care visit and case conference. Call received earlier from RN with report of continued out of control pain and agitation. Review of record and eMAR done and visit made. Pt reaching in the air, moaning, drawing legs up. Introduced myself to and granddaughter. [facility] arrived for visit and she was updated. T/c to Dr with report and explored thoughts for simplified s/s management regime and possible dc of IV steriods that may be contributing to pt's agitation. working with pharmacist to simplify analgesic regime and discuss continuous HUNTING GUIDE. She mentioned trandfer to a facility with HUNTING GUIDE when s/s controlled. Pt's family desire d/c home. senior group manager states they can provide HUNTING GUIDE pump for analgesia via mediport at home with at least 24 hour notice with orders for obtaining and shipping from a home infusion pharmacy. Order for CM entered to assist with dc planning if possible. Pt given foot rub and this seemed to calm her momentarily. Coached family on touch and calming pt with additional nonpharmacological means. Will cont to follow for s/s management.
--- NOTE | 2019-05-21 17:30 | NUR ---
Routine spiritual care note: Met with Lucy's mom and spouse at bedside. Spouse appears worn out and emotionally frayed. He could not sit still as he spoke about the turmoil going on at home with their adult children. This afternoon he moved out and will now be living in his car. I advised him to not make any big decisions in this highly emotional time. Lina was more calm, but expressed concern for JW. Lucy appeared to be sleeping peacefully. Breaths shallow, but snoring. She did not respond to voice or touch. Prayer provided at bedside. I will remain available.
--- NOTE | 2019-05-21 19:30 | NUR ---
VIRGINIA WAS JUST STARTED ON ANALYTICS SENIOR MANAGER PUMP OF MORPHINE. SHE IS GETTING 4 MG CONTINUOUS BUT ORDER STATES 5.5MG. UNFORTANTLY THE MACHINE MAXES OUT AT 4MG AND DOES NOT ALLOW A HIGHER DOSAGE SET. PHARMACY AND ICU WAS CALLED TO SEE IF THEY HAD ANY SUGGESTIONS, ANSWER WAS NO. CHARGE NURSES WERE INFORMED WELL, IT WAS AGREED TO SEE HOW THE PATIENT DOES ON THE 4MG FIRST BEFORE ANY CHANGES ARE MADE. SHE WAS STILL MOANING AND GROINING IN PAIN. GAVE HER ROXINAL AND PHENERGAN PER ORDERS. THIS CALMED HER DOWN. VERIFIED ANALYTICS SENIOR MANAGER PUMP. WILL CONTINUE TO JOHN.
--- NOTE | 2019-05-21 19:41 | NUR ---
END OF SHIFT SUMMARY: PATIENT SHOWED MULTIPLE SIGNS OF PAIN THIS MORNING FROM BEGINNING OF SHIFT UNTIL ABOUT 11:30. PATIENT MOANING, HAD FURROWED BROW, AND MOVING HER ARMS RESTLESSLY. MEDICATED MULTIPLE TIMES (SEE EMAR). COORDINATED WITH SAWYER HERRING, PALLIATIVE CARE RN TO GET NEW ORDERS FOR THE PATIENT. FENTANYL MANAGER BUSINESS OPERATIONS STARTED ABOUT 11:15. PATIENT TOLERATED WELL. PATIENT SHOWED INCREASED COMFORT ( EVIDENCED BY HALT IN THE MOANING AND SIGNIFICANT DECREASE IN THE FURROWED BROW AND RESTLESS ARMS). ABLE TO PROVIDE COMFORT DURING TIMES OF PAIN WITH OTHER PRNS. PATIENT ABLE TO SLEEP FOR MOST OF THE AFTERNOON. FAMILY AT BEDSIDE. FAMILY IS SUPPORTIVE OF THE PATIENT AND NEED SUPPORT OF THE STAFF. PLAN IS FOR THE PATIENT TO DISCHARGE WITH A HOME HOSPICE MANAGER BUSINESS OPERATIONS. PER REPORT, THE AGENCY IS UNABLE TO PROVIDE A FENTANYL MANAGER BUSINESS OPERATIONS. NEW ORDERS RECEIVED FOR A MORPHINE MANAGER BUSINESS OPERATIONS. MANAGER BUSINESS OPERATIONS PUMP STARTED JUST BEFORE CHANGE OF SHIFT. MANAGER BUSINESS OPERATIONS DOES NOT ALLOW 5.5 MG/HR TO BE PROGRAMED INTO THE MACHINE. THE MAX IS 4MG/HR. DISCUSSED WITH PHARMACY. PER PHARMACY, THEY ARE UNABLE TO OFFER ANY ASSISTANCE WITH PUMPS. DISCUSSED WITH DIRECTOR OF CONTENT MARKETING AND AN LENS GRINDER APPRENTICE. AT THIS TIME, THERE ARE NO SUGGESTIONS FOR HOW TO ENTER IN THE CORRECT SETTINGS. CIRCULAR STUFFER RN IS AWARE.
--- NOTE | 2019-05-22 00:10 | NUR ---
PATIENT JUST WAKING UP, SOUNDED WET, ATTEMPTED TO SUCTION SOME, SHE DID NOT ALLOW THIS VERY WELL. HAVE BEEN MEDICATED THE PATIENT EVERY 2 HOURS WITH ROXINAL TO HELP KEEP HER PAIN UNDER CONTROL. SHE IS NOW MOANING AND IS RESTLESS. GAVE HER PHENERGAN, IT IMMEDIATLY STARTED TO SETTLE HER DOWN.
--- NOTE | 2019-05-22 04:00 | NUR ---
VIRGINIA IS STILL RESTING COMFORTABLY. FAMILY IS ASLEEP AT BEDSIDE. NO SIGN OF PAIN OR DISCOMFORT. WILL CONTINUE TO MONITOR.
--- NOTE | 2019-05-22 05:49 | NUR ---
SHIFT SUMMARY: VIRGINIA HAS HAD A BETTER NIGHT. SHE HAS BEEN ON THE SOFTWARE APPLICATIONS SPECIALIST PUMP RUNNING AT 4MG NOT THE 5.5 THAT WAS ORDERED. STILL UNABLE TO GET THE PUMP TO ALLOW HIGHER DOSAGE. ROXINAL WAS GIVEN EVER 2 HOURS DURING THE FIRST FEW HOURS OF THE SHIFT TO ALLOW STABILAZATION ON THE PUMP. LAST DOSE OF ROXINAL WAS GIVEN AT 0200. SHE HAS BEEN GIVEN PHENERGAN X3 THIS SHIFT. THIS SEEMS TO HELP THE PATIENT THE MOST. DISCUSSED WITH THE FAMILY ABOUT POSSIBLY USEING THE SOFTWARE APPLICATIONS SPECIALIST PUMP AND PHENERGAN TO HELP CONTROL HER PAIN AND DISCOMFORT, AND WEAN OFF THE ROXINAL. THEY SAID WHAT EVERY HELPS. SUCTION WAS ALSO STARTED, SHE HAS DEVELOPED SOME SECRETIONS, ATTEMPTED TO SUCTION X1, SHE TENDS TO FIGHT IT, BUT WAS ABLE TO CLEAR SOME OUT. FAMILY HAS BEEN BY THE BEDSIDE ALL NIGHT. NO OTHER CHANGES TO REPORT AT THIS TIME.
--- NOTE | 2019-05-22 11:01 | NUR ---
PATIENTS FAMILY DID NOT WANT HER TO BE REPOSITIONED OR PERSONAL CARE AT THIS TIME.
--- NOTE | 2019-05-22 11:09 | NUR ---
PT ASLEEP, AND MOTHER SLEEPING IN ROOM.
--- NOTE | 2019-05-22 11:11 | NUR ---
PT RESTING IN BED, AND MOTHER AT BEDSIDE.
--- NOTE | 2019-05-22 11:14 | NUR ---
PT SLEEPING IN BED. AND MOTHER ASLEEP IN ROOM.
--- NOTE | 2019-05-22 15:01 | NUR ---
1ML MORPHINE FROM DRAFTER GEOPHYSICAL PUMP WASTED WITH JASON LARSEN. NEW BAG PLACED ON PUMP, PUMP RUNNING AT 5.5MG/HR.
--- NOTE | 2019-05-22 15:42 | NUR ---
FAMILY REFUSED TO HAVE PATIENT REPOSITIONED OR BATHED AT THIS TIME.
--- NOTE | 2019-05-22 18:44 | NUR ---
PT IS A COMFORT CARE PT. PT ON ASSOCIATE ENTERTAINMENT EDITOR DRIP AT 5.5 MG/HR. PT ALSO RECEIVING PRN PHENERGAN, ATIVAN, AND ROXANOL FOR PAIN AND AGITATION. PT MEDICATED TO RESTFUL STATE. PT'S AND MOTHER IN THE ROOM THROUGHOUT THIS SHIFT. PT REPOSITIONED THROUGHOUT THIS SHIFT, WITH EXCEPTIONS WHEN THE FAMILY ASKED FOR HER TO BE LEFT DUE TO RESTING COMFORTABLY. PT'S RIVERA REMOVED DUE TO NOT BEING PATENT AND LEAKING AROUND. PT CURRENTLY RESTING COMFORTABLY WITH FAMILY IN THE ROOM.
--- NOTE | 2019-05-22 19:15 | NUR ---
VIRGINIA IS LAYING COMFORTABLY IN BED. FAMILY AT BEDSIDE. APPEARS A LITTLE ON EDGE AND UPSET ABOUT PLAN FOR DISCHARGE. FEELS HE MAY NOT BE ABLE TO MANAGE HER PAIN AT HOME. DISCUSSED HIS CONCERNS AND ALLOW HIM TO VENT. REASSURRED HIM HOME HEALTH WILL BE THERE TO ASSIST. ALSO DISCUSSED PLAN FOR TONIGHT, HE WAS ALSO UPSET ABOUT THE CATHETER BEING PULLED. TALKED WITH HIM ABOUT HOW IT WAS CLOGGING UP, AND IT COULD BE RELATED TO THE TUMOR. HE UNDERSTOOD A LITTLE BETTER. GOT HIM CALMED DOWN WITH REST OF FAMILY WITH LOTS OF REASSURANCE.
--- NOTE | 2019-05-23 00:02 | NUR ---
PATIENT ATTENDS CHANGED, REPOSITIONED, SCOPOLIMIN PATCH APPLIED, ATIVAN AND ROXINAL FOR AGGITATION AND PAIN. PATIENT STILL MOVING AND RAISING HER ARMS, MOANING EVERY NOW AND THEN. FAMILY AT BEDSIDE
--- NOTE | 2019-05-23 02:13 | NUR ---
PATIENT SLEEPING COMFORTABLY IN ROOM, FAMILY AT BEDSIDE, PHOTOVOLTAIC PANEL INSTALLER INFUSING WELL. NO SIGNS OF DISTRESS. ATTENDS DRY.
--- NOTE | 2019-05-23 05:17 | NUR ---
SHIFT SUMMARY: VIRGINIA HAD A GOOD NIGHT. SHE HAS RESTED PEACEFULLY WITH ONLY TWICE WAKING UP WITH MILD MOANS AND RAISING OF HER ARMS. URINE OUTPUT HAS BEEN MINIMAL IN ATTENDS. SHE HAS BEEN KEPT DRY. MEDICAL COLLECTOR PUMP RUNNING AT 5.5ML PER HOUR, SHE HAS GOTTEN ROXINAL A COUPLE OF TIMES, ATIVAN ONCE AND PHENERGAN A COUPLE TIMES BY THE END OF THE NIGHT. FAMILY CONTINUES TO BE AT HER SIDE. HAD LONG DISCUSSION WITH THE REGARDING PREPERATION FOR WHAT IS COMING AND HOW TO COPE WITH THE CHANGES. HE FELT BETTER ABOUT IT BUT STILL DOES NOT FEEL READY. HE DID APOLIGIZE FOR BEING ALITTLE ANGRY AT START OF SHIFT. INFORMED HIM THAT IT IS EXPECTED WITH THE HIM GREIVING. ENCOURAGED HIM TO ASK QUESTIONS AND BE UP FRONT WITH HIS FEARS. NO OTHER ACUTE CHANGES OCCURED THIS SHIFT. WILL REPORT OFF.
--- NOTE | 2019-05-23 08:21 | NUR ---
AT SHIFT CHANGE PATIENT WAS RESTING COMFORTABLY. EDUCATED ON " RATTLE" PATIENT DOES NOT APPEAR UNCOMFORTABLE. WILL CONTINUE TO MONITOR.
--- NOTE | 2019-05-23 09:00 | NUR ---
COMFORT CARE VISIT MADE: ASLEEP IN RECLINER NEXT TO PT'S BED. PT'S MOTHER STANDING NEXT TO BED, TENDING TO PT. PT LYING SUPINE WITH ARMS DRAWN UP TO CHEST. WET, GURGLING RESPIRATIONS NOTED. PT IS FAIRLY FLAT AND ON BACK AT THIS TIME. RN REPORTS THAT PAINFUL BEHAVIOURS NOTED WITH CHANGE OF POSITION AND FAMILY HAS REQUESTED MINIMAL CHANGES OF POSITION. RECOMMENDED PREMEDICATING WITHI PRN ROXANOL PRIOR TO CHANGE OF POSITION AND TURNING PT TO LEFT SIDE WITH HOB ELEVATED TO HELP WITH SECRETIONS AND AIRWAY. PT APPEARS TO BE ACTIVELY DYING. SPOKE WITH RN, CM AND HOSPCIE LIAISON RE: RECOMMENDATION TO CANCEL PLANS FOR D/C HOME WITH HOSPICE AT THIS TIME. WILL REASSESS FOR COMFORT OR CHECK IN WITH BEDSIDE NURSING AGAIN LATER TODAY.
--- NOTE | 2019-05-23 09:30 | NUR ---
FAMILY AT BEDSIDE. PATIENT APPEARS IN MINIMAL PAIN BUT LARGELY COMFORTABLE. FAMILY REASSURED AND COMFORTED NEEDED.
--- NOTE | 2019-05-23 10:56 | NUR ---
OFFERED TO REPOSITION PATIENT AT 0800, FAMILY REQUEST TO LEAVE HER BE.
--- NOTE | 2019-05-23 11:22 | NUR ---
PATIENT APPEARANCE IS LARGELY COMFORTABLE AT THIS TIME. FAMILY SATISFIED AND REPORTS PATIENT APPEARS COMFORTABLE.
--- NOTE | 2019-05-23 13:54 | NUR ---
Spiritual care visit conducted. Patient is lying in bed and has a crackle to her labored breathing. Family is bedside. I spent time with patient's mother, Lina. She told me of her fifi and the many losses and health battles she has overcome. I talked at length with other family members as well and provided prayer as we all held hands around patient and committed her into God's care. I provided grief support, companionship, spiritual guidance and prayer. Family responded well and tearfully voiced appreciation for my time and care.
--- NOTE | 2019-05-23 14:04 | NUR ---
REPOSITIONED PATIENT, FLOATED ON PILLOWS, MEDICATED FOR BODY WARMTH, ATROPINE DROPS FOR SECRETIONS. FAMILY AT BEDSIDE.
--- NOTE | 2019-05-23 16:19 | NUR ---
PATIENT APPEARS TO BE HAVING APENIC EPISODES IN BREATHING. SHE IS RESTING PEACEFUL. APPEARS COMFORTABLE. MOTHER AND FAMILY AT BEDSIDE.
--- NOTE | 2019-05-23 18:02 | NUR ---
Routine spiritual care note: Lucy has had numerous family and friends visiting today. All appear to be in acceptance, tearful, but appropriate. Lucy appears comfortable and non-responsive to voice/touch. Gentle debt management counselor and affirmation provided to gathered family. Prayer at bedside. [employer] services will remain available.
--- NOTE | 2019-05-23 18:41 | NUR ---
NOTIFIED THIS RN TO MAINTAIN MORPHINE AT 5.5MG/HR. NOTIFIED PHARMACY TO CONTINUE THE 5.5 RATE.
--- NOTE | 2019-05-23 22:57 | NUR ---
COMFORT CARE ASSESSMENT FAMILT PRESENT IN ROOM. PT IS SLEEPING, BELLMAN PUMP INFUSING. PT IS NON VERBAL. CALL LIGHT IN REACH, BED IN LOWEST POSTION, WILL CONTINUE TO MONITOR.
--- NOTE | 2019-05-23 22:58 | NUR ---
COMFORT CARE ASSESSMENT BREATH SOUNDS RATTLING, MEDICATED PER EMAR, KNIT [employer] WASHER PUMP INFUSING. PT UPPER BODY REPOSTIONED. CALL LIGHT IN REACH, BED IN LOWEST POSTOIN, WILL CONTINUE TO MONITOR.
--- NOTE | 2019-05-24 00:47 | NUR ---
COMFORT CARE ASSESSMENT FAMILY REQUESTED PT NOT BE REPOSITIONED DUE TO CAUSING THE PT PAIN. CALL LIGHT IN REACH, BED IN LOWEST POSTION, WILL CONTINUE TO MONITOR.
--- NOTE | 2019-05-24 00:48 | NUR ---
COMFORT CARE SUMMARY NOTICED THAT PT BREATHING HAS BECOME MORE RATTLED, PT MEDICATED PER EMAR. FAMILY IN ROOM SLEEPING WITH PT. CALL LIGHT IN REACH, BED IN LOWEST POSTION, WILL CONTINUE TO MONITOR.
--- NOTE | 2019-05-24 03:42 | NUR ---
END SHIFT SUMMARY PT PASSED AT 0300 05/24/2019. FAMILY WAS PRESENT IN ROOM. FAMILY STATED THEY DID NOT NEED A [facility] AND THEY WILL SEND THE PT TO [facility]. PT IS A CANIDATE FOR EYE DONATION. FAMILY IS STILL IN ROOM. THERAPUTIC COMMUNICATION AND ACTIVE LISTENING PROVIDED FOR FAMILY.
--- NOTE | 2019-05-24 06:04 | NUR ---
MOIR[facility] PIZARRO PICKED UP PT AT 0605 THIS AM.
== END 2019-05-24 03:00 | DRG 947 ==
LOC: ER 13:25 → MEDS 13:26
PROVIDERS: Nurse Practitioner Acute Care; ADMIT Internal Medicine
DX: G89.3 Neoplasm related pain (acute) (chronic) (principal); G92 Toxic encephalopathy; C79.89 Secondary malignant neoplasm of other specified sites; C79.51 Secondary malignant neoplasm of bone; C78.00 Secondary malignant neoplasm of unspecified lung; C77.9 Secondary and unspecified malignant neoplasm of lymph node, unspecified; C54.1 Malignant neoplasm of endometrium; Z51.5 Encounter for palliative care; T50.995A Adverse effect of other drugs, medicaments and biological substances, initial encounter; I10 Essential (primary) hypertension; E11.51 Type 2 diabetes mellitus with diabetic peripheral angiopathy without gangrene; Z79.4 Long term (current) use of insulin; G47.33 Obstructive sleep apnea (adult) (pediatric)
CPT/HCPCS: 81001; 96361; 96374; 96375; 96376; 99284-25; G0378; J1100; J1170; J1200; J1630; J2060; J2270; J2550; J3010; J7030; J7050